=== PATIENT | male | born 1940 | race Hispanic/Latino ===

== ENCOUNTER 2022-12-26 19:30 | Inpatient (IN) | payer MEDICARE ==
[~2022-12-26 19:30] MED LIST: Iopamidol 300 61% 100 ML VIAL FS ONE
[2022-12-26] MEDS ORDERED: Morphine 4 MG/ML VIAL ONE ×2 (20:10→22:28)
[2022-12-26] MEDS ORDERED: Ondansetron PF 4 MG/2 ML Vial ONE (20:10)
[2022-12-26 20:17] LABS: Hematocrit 31.1 % (38.8-50.0); Hemoglobin 9.6 g/dL (13.5-17.5); MDiff Complete? YES; Mean Corpuscular HGB CONC 30.9 g/dL (32.0-36.0); Mean Corpuscular Hemoglobin 22.6 pg (27.0-33.0); Mean Corpuscular Volume 73.2 fl (81.2-95.1); Mean Platelet Volume 9.2 fl (7.4-10.4); Platelet Count 315 10x3/uL (150-450); RBC Distribution Width 15.9 % (11.5-14.5); Red Blood Cell (RBC) Count 4.25 10x6/uL (4.32-5.72); White Blood Cell (WBC) Count 11.3 10x3/uL (3.5-10.5)
[2022-12-26 20:23] LABS: INR-International Normal Ratio 1.4
[2022-12-26 20:27] LABS: ALT (SGPT) 11 U/L (8-55); AST (SGOT) 14 U/L (5-34); Alkaline Phosphatase 77 U/L (40-110); Anion Gap 19 mmol/L (10-20); BUN (Urea Nitrogen) 23 mg/dL (8.4-25.7); Bilirubin, Total 1.9 mg/dL (0.2-1.2); Calc. Creatinine Clearance 0 mL/min (70-130); Calcium 8.9 mg/dL (7.8-10.44); Carbon Dioxide 20 mmol/L (23-31); Chloride 99 mmol/L (98-107); Estimated GFR 59; Glucose 342 mg/dL (83-110); Potassium 4.4 mmol/L (3.5-5.1); Sodium 134 mmol/L (136-145)
[2022-12-26 20:37] LABS: Lipase Less than 4 U/L (8-78)
[2022-12-26 21:23] LABS: Band 19 % (5-11); Lymphocytes 5 % (21-51); Monocytes 3 % (0-10); Neutrophil 73 % (42-75)
[2022-12-26 21:25] LABS: Hypochromia SLIGHT = 6-15 cells (100X) (0-5/hpf); Microcytosis SLIGHT = 6-15 cells (100X) (0-5/hpf); Schistocytes SLIGHT = 2-5 cells (100X) (0-1/hpf); Stomatocytes SLIGHT = 2-5 cells (100X) (0-1/hpf)
[2022-12-26 21:26] LABS: Platelet Adequacy Comment Appears Adequate
[2022-12-26 21:41] LABS: Actual Bicarbonate (HCO3v) 22.7 mEq/L (22-28); Base Excess -2.4 mEq/L (-2 - +2); Calcium, Ionized (venous) 1.11 mmol/L (1.16-1.32); Chloride (VBG) 99 mmol/L (98-106); Hematocrit-VBG 26 % (42.0-52.0); Hemoglobin (Hb) 8.9 g/dL (12.6-17.4); Potassium (VBG) 4.07 mmol/L (3.70-5.30); Puncture Site Other Site; RapidComm Collect By CBN; Sodium 131.9 mmol/L (133-146); pH (venous) 7.369 (7.32-7.43)
[2022-12-26 22:58] LABS: Lactic Acid 1.3 mmol/L (0.5-2.2)
[2022-12-26 23:32] LABS: Bilirubin Neg (Negative); Blood, Urine 25 (Negative); Clarity Clear (Clear); Glucose, Urine (Dipstick) >=1000 mg/dL (Negative); Ketone, Urine 50 mg/dL (Negative); Leukocyte Negative (Negative); Nitrite Negative (Negative); Protein, Urine (Dipstick) 30 mg/dl (Neg-Trace); Urobilinogen Normal mg/dL (Less than 2)
[2022-12-26 23:41] LABS: Bacteria/HPF None Seen HPF (None Seen); CAUTI Indications for Culture Pelvic or flank pain; RBC/HPF 0-3 HPF (0-3); Squamous Epithelial 0-3 HPF (0-3); WBC/HPF None Seen HPF (0-3)
[2022-12-26 23:42] LABS: Urine Culture Reflex No No
[2022-12-27] MEDS ORDERED: Piperacillin/Tazobactam 3.375 GM VIAL ONE (00:39)
[2022-12-27 01:11] LABS: Anion Gap 14 mmol/L (10-20); BUN (Urea Nitrogen) 18 mg/dL (8.4-25.7); Calc. Creatinine Clearance 0 mL/min (70-130); Calcium 8.2 mg/dL (7.8-10.44); Carbon Dioxide 19 mmol/L (23-31); Chloride 106 mmol/L (98-107); Estimated GFR 88; Glucose 228 mg/dL (83-110); Sodium 135 mmol/L (136-145)
[2022-12-27] MEDS ORDERED: Dextrose 5% in Water 1,000 ML IV PRN (01:42)
[2022-12-27] MEDS ORDERED: Ondansetron ODT 4 MG TAB PO PRN (01:42)
[2022-12-27] MEDS ORDERED: Dextrose 50% Abboject 50 ML SYRINGE SLOW IVP PRN (01:42)
[2022-12-27] MEDS ORDERED: Acetaminophen 650 MG Suppository PR PRN (01:42)
[2022-12-27] MEDS ORDERED: Glucagon 1 MG/ML KIT IM PRN (01:42)
[2022-12-27] MEDS ORDERED: Ondansetron PF 4 MG/2 ML Vial IVP PRN (01:42)
[2022-12-27] MEDS ORDERED: Acetaminophen 325 MG TAB PO PRN (01:42)
[2022-12-27 02:11] VITALS: BMI 17.8
[2022-12-27] MEDS: HumaLOG 300 UNITS/3 ML VIAL SC PRN (02:38)
[2022-12-27] MEDS: Sodium Chloride 0.9% 1,000 ML IV SCH ×2 (02:38→12:33)
[2022-12-27 04:30] LABS: Anion Gap 13 mmol/L (10-20); BUN (Urea Nitrogen) 17 mg/dL (8.4-25.7); Calc. Creatinine Clearance 44 mL/min (70-130); Calcium 8.2 mg/dL (7.8-10.44); Carbon Dioxide 20 mmol/L (23-31); Chloride 104 mmol/L (98-107); Estimated GFR 87; Glucose 152 mg/dL (83-110); Potassium 3.8 mmol/L (3.5-5.1); Sodium 133 mmol/L (136-145)
[2022-12-27 04:35] LABS: Hematocrit 27.1 % (38.8-50.0); Hemoglobin 8.2 g/dL (13.5-17.5); MDiff Complete? YES; Mean Corpuscular HGB CONC 30.3 g/dL (32.0-36.0); Mean Corpuscular Hemoglobin 22.7 pg (27.0-33.0); Mean Corpuscular Volume 75.1 fl (81.2-95.1); Mean Platelet Volume 9.2 fl (7.4-10.4); Platelet Count 275 10x3/uL (150-450); RBC Distribution Width 15.7 % (11.5-14.5); Red Blood Cell (RBC) Count 3.61 10x6/uL (4.32-5.72); White Blood Cell (WBC) Count 9.4 10x3/uL (3.5-10.5)
[2022-12-27] MEDS: Morphine 4 MG/ML VIAL SLOW IVP PRN (05:38)
[2022-12-27] MEDS: Piperacillin/Tazobactam 3.375 GM in Sodium Chloride 0.9% 100 ML IVPB SCH ×3 (05:38→21:40)
[2022-12-27 06:37] LABS: Band 19 % (5-11); Lymphocytes 2 % (21-51); Monocytes 3 % (0-10); Neutrophil 75 % (42-75); Reactive Lymphocytes 1 % (0-10)
[2022-12-27 06:39] LABS: Microcytosis SLIGHT = 6-15 cells (100X) (0-5/hpf)
[2022-12-27 06:40] LABS: Hypochromia SLIGHT = 6-15 cells (100X) (0-5/hpf); Ovalocytes SLIGHT = 2-5 cells (100X) (0-1/hpf); Platelet Adequacy Comment Appears Adequate; Schistocytes SLIGHT = 2-5 cells (100X) (0-1/hpf)
[2022-12-27 17:08] LABS: Hematocrit 28.4 % (38.8-50.0); Hemoglobin 8.6 g/dL (13.5-17.5); Platelet Count 268 10x3/uL (150-450)
[2022-12-27 17:29] LABS: Iron 10 ug/dL (65-175); Iron Binding Capacity, Total 314 mcg/dL (261-462)
[2022-12-27 17:47] LABS: Ferritin 138.25 ng/mL (22-322)
[2022-12-27 20:52] LABS: CEA, Serum 10.6 ng/mL (< or = 5.0)
[2022-12-28 04:32] LABS: #Monocytes 0.4 10x3/uL (0.0-1.1); #Neutrophils 8.1 10x3/uL (1.5-8.4); %Basophils 0.2 % (0.0-2.0); %Lymphocytes 4.8 % (18.0-47.0); %Monocytes 4.2 % (0.0-10.0); %Neutrophils 90.6 % (40.0-75.0); Hematocrit 24.9 % (38.8-50.0); Hemoglobin 7.6 g/dL (13.5-17.5); Mean Corpuscular HGB CONC 30.5 g/dL (32.0-36.0); Mean Corpuscular Volume 75.2 fl (81.2-95.1); Mean Platelet Volume 9.5 fl (7.4-10.4); Platelet Count 271 10x3/uL (150-450); Red Blood Cell (RBC) Count 3.31 10x6/uL (4.32-5.72)
[2022-12-28 04:42] LABS: ALT (SGPT) 11 U/L (8-55); AST (SGOT) 17 U/L (5-34); Albumin 2.9 g/dL (3.4-4.8); Alkaline Phosphatase 63 U/L (40-110); Anion Gap 15 mmol/L (10-20); BUN (Urea Nitrogen) 16 mg/dL (8.4-25.7); Bilirubin, Total 0.7 mg/dL (0.2-1.2); Calc. Creatinine Clearance 54 mL/min (70-130); Calcium 8.3 mg/dL (7.8-10.44); Carbon Dioxide 18 mmol/L (23-31); Chloride 108 mmol/L (98-107); Estimated GFR 92; Globulin 2.6 g/dL (2.4-3.5); Glucose 101 mg/dL (83-110); Potassium 3.5 mmol/L (3.5-5.1); Protein, Total 5.5 g/dL (5.8-8.1); Sodium 137 mmol/L (136-145)
[2022-12-28 04:43] LABS: Iron Binding Capacity, Total 270 mcg/dL (261-462)
[2022-12-28 04:54] LABS: Iron Binding Capacity, Total 278 mcg/dL (261-462)
[2022-12-28] MEDS: Piperacillin/Tazobactam 3.375 GM in Sodium Chloride 0.9% 100 ML IVPB SCH ×3 (05:04→21:59)
[2022-12-28] MEDS: Sodium Chloride 0.9% 1,000 ML IV SCH ×3 (05:04→16:17)
[2022-12-28 05:21] LABS: Iron Less than 8 ug/dL (65-175)
[2022-12-28 05:34] LABS: Iron Less than 8 ug/dL (65-175)
[2022-12-28] MEDS: Morphine 4 MG/ML VIAL SLOW IVP PRN (09:42)
[2022-12-28] MEDS ORDERED: PROPOFOL 20 ML ONE (12:50)
[2022-12-28] MEDS ORDERED: fentaNYL 50 mcg/mL 1 mL Vial ONE (12:50)
[2022-12-28] MEDS ORDERED: Ondansetron PF 4 MG/2 ML Vial ONE (12:50)
[2022-12-28] MEDS ORDERED: Glycopyrrolate 0.2 MG/ML 5 ML SYRINGE ONE (12:50)
[2022-12-28] MEDS ORDERED: Dexamethasone 20 MG/5 ML VIAL ONE (12:50)
[2022-12-28] MEDS ORDERED: Lidocaine 1% PF 5 ML VIAL ONE (12:50)
[2022-12-28] MEDS ORDERED: Rocuronium Bromide 10 MG/ML (10ML VIAL) ONE (12:50)
[2022-12-28] MEDS ORDERED: Midazolam HCl 2 mg/2 ml Vial ONE (12:50)
[2022-12-28] MEDS ORDERED: Bupivacaine 0.25% HCL 30 ML VIAL ONE (12:54)
[2022-12-28] MEDS ORDERED: PHENYLEPHRINE-NS 100 MCG/ML 10 ML SYRINGE ONE (13:33)
[2022-12-28] MEDS ORDERED: Bupivacaine HCl 0.5%/Epinephrine 1:200,000/PF 30 ml Vial ONE (13:33)
[2022-12-28] MEDS ORDERED: Piperacillin/Tazobactam 3.375 GM VIAL ONE (14:06)
[2022-12-28 17:10] LABS: Hematocrit 25.9 % (38.8-50.0); Hemoglobin 7.6 g/dL (13.5-17.5); Platelet Count 256 10x3/uL (150-450)
[2022-12-28] MEDS ORDERED: Iron, Sodium Ferric Gluconate 125 MG in Sodium Chloride 0.9% 100 ML IVPB SCH (18:15)
[2022-12-28] MEDS: HumaLOG 300 UNITS/3 ML VIAL SC PRN (23:41)
[2022-12-29] MEDS: Sodium Chloride 0.9% 1,000 ML IV SCH (05:20)
[2022-12-29] MEDS: Piperacillin/Tazobactam 3.375 GM in Sodium Chloride 0.9% 100 ML IVPB SCH ×3 (05:42→22:52)
[2022-12-29 07:16] LABS: #Monocytes 0.1 10x3/uL (0.0-1.1); #Neutrophils 9.9 10x3/uL (1.5-8.4); %Lymphocytes 3.3 % (18.0-47.0); %Monocytes 1.4 % (0.0-10.0); %Neutrophils 94.9 % (40.0-75.0); Hematocrit 26.7 % (38.8-50.0); Mean Corpuscular Hemoglobin 22.8 pg (27.0-33.0); Mean Corpuscular Volume 76.1 fl (81.2-95.1); Mean Platelet Volume 9.6 fl (7.4-10.4); Platelet Count 286 10x3/uL (150-450); RBC Distribution Width 16.1 % (11.5-14.5); Red Blood Cell (RBC) Count 3.51 10x6/uL (4.32-5.72); White Blood Cell (WBC) Count 10.4 10x3/uL (3.5-10.5)
[2022-12-29 07:29] LABS: ALT (SGPT) 11 U/L (8-55); AST (SGOT) 16 U/L (5-34); Albumin 2.9 g/dL (3.4-4.8); Alkaline Phosphatase 61 U/L (40-110); Anion Gap 17 mmol/L (10-20); BUN (Urea Nitrogen) 17 mg/dL (8.4-25.7); Bilirubin, Total 0.5 mg/dL (0.2-1.2); Calc. Creatinine Clearance 50 mL/min (70-130); Calcium 8.5 mg/dL (7.8-10.44); Carbon Dioxide 17 mmol/L (23-31); Chloride 109 mmol/L (98-107); Estimated GFR 90; Globulin 2.8 g/dL (2.4-3.5); Glucose 222 mg/dL (83-110); Potassium 4.5 mmol/L (3.5-5.1); Protein, Total 5.7 g/dL (5.8-8.1); Sodium 138 mmol/L (136-145)
[2022-12-29] MEDS: Ferrous Sulfate 325 MG TAB PO SCH (09:55)
[2022-12-29] MEDS: Polyethylene Glycol 3350 17 GM Packet PO SCH (09:56)
[2022-12-29] MEDS: HumaLOG 300 UNITS/3 ML VIAL SC PRN ×2 (12:15→19:56)
[2022-12-29] MEDS: HYDROcodone/Acetaminophen 5/325 mg Tablet PO PRN (12:25)
[2022-12-29] MEDS ORDERED: Ibuprofen 400 MG TAB PO PRN (13:03)
[2022-12-29] MEDS: Acetaminophen 500 MG TAB PO SCH ×2 (15:37→20:00)
[2022-12-29 17:10] LABS: Hematocrit 25.6 % (38.8-50.0); Hemoglobin 7.9 g/dL (13.5-17.5); Platelet Count 285 10x3/uL (150-450)
[2022-12-29] MEDS ORDERED: Amlodipine 5 MG TAB PO SCH (18:30)
[2022-12-29] MEDS ORDERED: Iron, Sodium Ferric Gluconate 250 MG in Sodium Chloride 0.9% 250 ML 250 ML IVPB SCH (20:00)
[2022-12-30] MEDS: HumaLOG 300 UNITS/3 ML VIAL SC PRN ×2 (02:14→12:46)
[2022-12-30] MEDS: Acetaminophen 500 MG TAB PO SCH ×4 (02:14→21:35)
[2022-12-30 05:58] LABS: %Lymphocytes 3.1 % (18.0-47.0); %Monocytes 4.5 % (0.0-10.0); %Neutrophils 91.8 % (40.0-75.0); Hematocrit 24.9 % (38.8-50.0); Hemoglobin 7.6 g/dL (13.5-17.5); Mean Corpuscular HGB CONC 30.5 g/dL (32.0-36.0); Mean Corpuscular Hemoglobin 22.8 pg (27.0-33.0); Mean Corpuscular Volume 74.6 fl (81.2-95.1); Mean Platelet Volume 9.9 fl (7.4-10.4); Platelet Count 296 10x3/uL (150-450); RBC Distribution Width 15.9 % (11.5-14.5); Red Blood Cell (RBC) Count 3.34 10x6/uL (4.32-5.72); White Blood Cell (WBC) Count 15.8 10x3/uL (3.5-10.5)
[2022-12-30 05:59] LABS: #Monocytes 0.7 10x3/uL (0.0-1.1); #Neutrophils 14.5 10x3/uL (1.5-8.4); %Basophils 0.1 % (0.0-2.0); Carbon Dioxide 22 mmol/L (23-31); Chloride 106 mmol/L (98-107); Potassium 3.4 mmol/L (3.5-5.1); Sodium 136 mmol/L (136-145)
[2022-12-30 06:00] LABS: Albumin 2.6 g/dL (3.4-4.8); Anion Gap 11 mmol/L (10-20); BUN (Urea Nitrogen) 14 mg/dL (8.4-25.7); Bilirubin, Total 0.4 mg/dL (0.2-1.2); Calc. Creatinine Clearance 55 mL/min (70-130); Calcium 8.2 mg/dL (7.6-10.4); Estimated GFR 93; Globulin 2.5 g/dL (2.4-3.5); Glucose 196 mg/dL (83-110); Protein, Total 5.1 g/dL (5.8-8.1)
[2022-12-30 06:01] LABS: ALT (SGPT) 10 U/L (8-55); AST (SGOT) 17 U/L (5-34); Alkaline Phosphatase 60 U/L (40-110)
[2022-12-30] MEDS: Piperacillin/Tazobactam 3.375 GM in Sodium Chloride 0.9% 100 ML IVPB SCH ×3 (06:07→22:27)
[2022-12-30] MEDS ORDERED: Potassium Chloride 20 MEQ TAB PO SCH (09:00)
[2022-12-30] MEDS: Ferrous Sulfate 325 MG TAB PO SCH (09:39)
[2022-12-30] MEDS: Amlodipine 5 MG TAB PO SCH (09:42)
[2022-12-30] MEDS: Polyethylene Glycol 3350 17 GM Packet PO SCH (09:45)
[2022-12-30] MEDS ORDERED: SUGAMMADEX SODIUM 200 MG/2 ML VIAL ONE (20:53)
[2022-12-30] MEDS ORDERED: Famotidine/PF 20 mg/2ml Vial ONE (20:53)
[2022-12-30] MEDS ORDERED: Vasopressin 20 UNITS/ML VIAL ONE (20:54)
[2022-12-30] MEDS ORDERED: Phenylephrine 10 MG/ML VIAL ONE (20:55)
[2022-12-30] MEDS ORDERED: PROPOFOL 20 ML ONE (21:02)
[2022-12-30] MEDS ORDERED: Dexamethasone 4 mg/ml Vial ONE (21:03)
[2022-12-30] MEDS ORDERED: Lidocaine 2% PF 5 ML VIAL ONE (21:03)
[2022-12-30] MEDS ORDERED: Ondansetron PF 4 MG/2 ML Vial ONE (21:03)
[2022-12-30] MEDS ORDERED: PHENYLEPHRINE-NS 100 MCG/ML 10 ML SYRINGE ONE (21:03)
[2022-12-30] MEDS ORDERED: Rocuronium Bromide 10 MG/ML (10ML VIAL) ONE (21:03)
[2022-12-30] MEDS ORDERED: fentaNYL 50 mcg/mL 1 mL Vial ONE (21:03)
[2022-12-30] MEDS ORDERED: Succinylcholine 200 MG/10 ml SYRINGE FS ONE (21:03)
[2022-12-30] MEDS ORDERED: ePHEDrine Sulfate 50 MG/10 ML VIAL ONE (22:16)
[2022-12-31] MEDS: Acetaminophen 500 MG TAB PO SCH ×5 (00:07→23:27)
[2022-12-31] MEDS: HumaLOG 300 UNITS/3 ML VIAL SC PRN ×2 (00:20→12:47)
[2022-12-31] MEDS: Morphine 2 MG/ML VIAL SLOW IVP PRN ×5 (00:21→19:40)
[2022-12-31 03:50] LABS: #Monocytes 0.4 10x3/uL (0.0-1.1); #Neutrophils 13.2 10x3/uL (1.5-8.4); %Basophils 0.3 % (0.0-2.0); %Eosinophils 0.1 % (0.0-6.0); %Lymphocytes 2.3 % (18.0-47.0); %Monocytes 2.8 % (0.0-10.0); %Neutrophils 92.3 % (40.0-75.0); Hematocrit 33.7 % (38.8-50.0); Hemoglobin 10.8 g/dL (13.5-17.5); Mean Corpuscular Hemoglobin 24.3 pg (27.0-33.0); Mean Corpuscular Volume 75.9 fl (81.2-95.1); Mean Platelet Volume 8.8 fl (7.4-10.4); Platelet Count 238 10x3/uL (150-450); RBC Distribution Width 17.2 % (11.5-14.5); Red Blood Cell (RBC) Count 4.44 10x6/uL (4.32-5.72); White Blood Cell (WBC) Count 14.3 10x3/uL (3.5-10.5)
[2022-12-31 04:00] LABS: Anion Gap 15 mmol/L (10-20); BUN (Urea Nitrogen) 10 mg/dL (8.4-25.7); Calc. Creatinine Clearance 59 mL/min (70-130); Carbon Dioxide 19 mmol/L (23-31); Chloride 106 mmol/L (98-107); Potassium 3.5 mmol/L (3.5-5.1); Sodium 136 mmol/L (136-145)
[2022-12-31 04:01] LABS: ALT (SGPT) 16 U/L (8-55); AST (SGOT) 27 U/L (5-34); Albumin 2.8 g/dL (3.4-4.8); Alkaline Phosphatase 74 U/L (40-110); Bilirubin, Total 0.9 mg/dL (0.2-1.2); Calcium 8.1 mg/dL (7.8-10.44); Estimated GFR 95; Globulin 2.7 g/dL (2.4-3.5); Glucose 188 mg/dL (83-110); Protein, Total 5.5 g/dL (5.8-8.1)
[2022-12-31] MEDS: Piperacillin/Tazobactam 3.375 GM in Sodium Chloride 0.9% 100 ML IVPB SCH ×3 (05:27→21:07)
[2022-12-31] MEDS ORDERED: Amlodipine 5 MG TAB PO SCH (05:30)
[2022-12-31] MEDS ORDERED: hydrALAZINE 20 MG/ML VIAL SLOW IVP PRN (06:04)
[2022-12-31] MEDS: Pantoprazole 40 MG VIAL IVP SCH (08:27)
[2022-12-31] MEDS: Amlodipine 5 MG TAB PO SCH (08:27)
[2022-12-31] MEDS: Ferrous Sulfate 325 MG TAB PO SCH (08:27)
[2022-12-31] MEDS: Polyethylene Glycol 3350 17 GM Packet PO SCH ×2 (08:30→08:40)
[2022-12-31] MEDS ORDERED: Iopamidol 300 61% 100 ML VIAL FS ONE (10:24)
[2023-01-01] MEDS: HYDROcodone/Acetaminophen 5/325 mg Tablet PO PRN ×3 (01:17→20:30)
[2023-01-01 04:21] LABS: #Monocytes 0.5 10x3/uL (0.0-1.1); #Neutrophils 9.1 10x3/uL (1.5-8.4); %Basophils 0.2 % (0.0-2.0); %Eosinophils 0.2 % (0.0-6.0); %Lymphocytes 6.6 % (18.0-47.0); %Monocytes 5.1 % (0.0-10.0); %Neutrophils 85.4 % (40.0-75.0); Hematocrit 29.8 % (38.8-50.0); Hemoglobin 9.7 g/dL (13.5-17.5); Mean Corpuscular HGB CONC 32.6 g/dL (32.0-36.0); Mean Corpuscular Volume 73.8 fl (81.2-95.1); Mean Platelet Volume 8.9 fl (7.4-10.4); Platelet Count 227 10x3/uL (150-450); RBC Distribution Width 16.8 % (11.5-14.5); Red Blood Cell (RBC) Count 4.04 10x6/uL (4.32-5.72); White Blood Cell (WBC) Count 10.6 10x3/uL (3.5-10.5)
[2023-01-01 04:34] LABS: ALT (SGPT) 16 U/L (8-55); AST (SGOT) 21 U/L (5-34); Albumin 2.6 g/dL (3.4-4.8); Alkaline Phosphatase 58 U/L (40-110); Anion Gap 16 mmol/L (10-20); BUN (Urea Nitrogen) 8 mg/dL (8.4-25.7); Bilirubin, Total 0.6 mg/dL (0.2-1.2); Calc. Creatinine Clearance 61 mL/min (70-130); Calcium 8.3 mg/dL (7.8-10.44); Carbon Dioxide 21 mmol/L (23-31); Chloride 100 mmol/L (98-107); Estimated GFR 96; Globulin 2.7 g/dL (2.4-3.5); Glucose 162 mg/dL (83-110); Potassium 3.1 mmol/L (3.5-5.1); Protein, Total 5.3 g/dL (5.8-8.1); Sodium 134 mmol/L (136-145)
[2023-01-01] MEDS: Acetaminophen 500 MG TAB PO SCH ×4 (05:25→23:02)
[2023-01-01] MEDS: Piperacillin/Tazobactam 3.375 GM in Sodium Chloride 0.9% 100 ML IVPB SCH ×3 (05:25→22:57)
[2023-01-01] MEDS ORDERED: Potassium Chloride 20 MEQ TAB PO SCH (06:15)
[2023-01-01] MEDS: Amlodipine 5 MG TAB PO SCH (07:44)
[2023-01-01] MEDS: Pantoprazole 40 MG VIAL IVP SCH (07:45)
[2023-01-01] MEDS: Ferrous Sulfate 325 MG TAB PO SCH (07:45)
[2023-01-01] MEDS: HumaLOG 300 UNITS/3 ML VIAL SC PRN ×2 (11:57→17:35)
[2023-01-02] MEDS: HYDROcodone/Acetaminophen 5/325 mg Tablet PO PRN (00:48)
[2023-01-02 03:26] LABS: #Eosinphils 0.3 10x3/uL (0.0-0.5); #Monocytes 0.5 10x3/uL (0.0-1.1); #Neutrophils 5.8 10x3/uL (1.5-8.4); %Basophils 0.4 % (0.0-2.0); %Eosinophils 3.7 % (0.0-6.0); %Lymphocytes 9.4 % (18.0-47.0); %Monocytes 6.6 % (0.0-10.0); %Neutrophils 76.1 % (40.0-75.0); Hematocrit 29.1 % (38.8-50.0); Hemoglobin 9.3 g/dL (13.5-17.5); Mean Corpuscular Hemoglobin 23.8 pg (27.0-33.0); Mean Corpuscular Volume 74.6 fl (81.2-95.1); Mean Platelet Volume 9.5 fl (7.4-10.4); Platelet Count 250 10x3/uL (150-450); RBC Distribution Width 16.9 % (11.5-14.5); White Blood Cell (WBC) Count 7.6 10x3/uL (3.5-10.5)
[2023-01-02 03:40] LABS: ALT (SGPT) 17 U/L (8-55); AST (SGOT) 20 U/L (5-34); Albumin 2.5 g/dL (3.4-4.8); Alkaline Phosphatase 60 U/L (40-110); Anion Gap 12 mmol/L (10-20); BUN (Urea Nitrogen) 6 mg/dL (8.4-25.7); Bilirubin, Total 0.6 mg/dL (0.2-1.2); Calc. Creatinine Clearance 67 mL/min (70-130); Calcium 8.1 mg/dL (7.8-10.44); Carbon Dioxide 25 mmol/L (23-31); Chloride 99 mmol/L (98-107); Estimated GFR 98; Globulin 2.6 g/dL (2.4-3.5); Glucose 169 mg/dL (83-110); Potassium 3.3 mmol/L (3.5-5.1); Protein, Total 5.1 g/dL (5.8-8.1); Sodium 133 mmol/L (136-145)
[2023-01-02] MEDS: Piperacillin/Tazobactam 3.375 GM in Sodium Chloride 0.9% 100 ML IVPB SCH (05:03)
[2023-01-02] MEDS: Acetaminophen 500 MG TAB PO SCH ×3 (05:03→18:04)
[2023-01-02] MEDS: Amlodipine 5 MG TAB PO SCH (07:33)
[2023-01-02] MEDS: Potassium Chloride 20 MEQ TAB PO SCH ×2 (07:33→13:33)
[2023-01-02] MEDS: Pantoprazole 40 MG VIAL IVP SCH (07:34)
[2023-01-02] MEDS: Ferrous Sulfate 325 MG TAB PO SCH (07:34)
[2023-01-02] MEDS: Amoxicillin/Potassium Clav 500 MG TAB PO SCH ×2 (09:17→20:01)
[2023-01-02] MEDS: HumaLOG 300 UNITS/3 ML VIAL SC PRN ×2 (11:46→16:24)
[2023-01-03] MEDS: Acetaminophen 500 MG TAB PO SCH ×4 (00:49→17:32)
[2023-01-03 03:53] LABS: #Eosinphils 0.4 10x3/uL (0.0-0.5); #Monocytes 0.4 10x3/uL (0.0-1.1); #Neutrophils 6.9 10x3/uL (1.5-8.4); %Basophils 0.3 % (0.0-2.0); %Eosinophils 4.8 % (0.0-6.0); %Lymphocytes 9.2 % (18.0-47.0); %Monocytes 4.5 % (0.0-10.0); %Neutrophils 78.5 % (40.0-75.0); Hematocrit 32.7 % (38.8-50.0); Hemoglobin 10.1 g/dL (13.5-17.5); Mean Corpuscular HGB CONC 30.9 g/dL (32.0-36.0); Mean Corpuscular Hemoglobin 23.5 pg (27.0-33.0); Mean Corpuscular Volume 76.2 fl (81.2-95.1); Mean Platelet Volume 9.8 fl (7.4-10.4); Platelet Count 293 10x3/uL (150-450); RBC Distribution Width 17.7 % (11.5-14.5); Red Blood Cell (RBC) Count 4.29 10x6/uL (4.32-5.72); White Blood Cell (WBC) Count 8.8 10x3/uL (3.5-10.5)
[2023-01-03 04:09] LABS: ALT (SGPT) 17 U/L (8-55); AST (SGOT) 21 U/L (5-34); Albumin 2.7 g/dL (3.4-4.8); Alkaline Phosphatase 75 U/L (40-110); Anion Gap 14 mmol/L (10-20); BUN (Urea Nitrogen) 8 mg/dL (8.4-25.7); Bilirubin, Total 0.5 mg/dL (0.2-1.2); Calc. Creatinine Clearance 60 mL/min (70-130); Calcium 8.5 mg/dL (7.8-10.44); Carbon Dioxide 23 mmol/L (23-31); Chloride 101 mmol/L (98-107); Estimated GFR 95; Globulin 2.6 g/dL (2.4-3.5); Glucose 142 mg/dL (83-110); Potassium 4.4 mmol/L (3.5-5.1); Protein, Total 5.3 g/dL (5.8-8.1); Sodium 134 mmol/L (136-145)
[2023-01-03] MEDS: Amlodipine 5 MG TAB PO SCH (08:03)
[2023-01-03] MEDS: Ferrous Sulfate 325 MG TAB PO SCH (08:03)
[2023-01-03] MEDS: Amoxicillin/Potassium Clav 500 MG TAB PO SCH ×2 (08:03→20:53)
[2023-01-03] MEDS: HumaLOG 300 UNITS/3 ML VIAL SC PRN (11:47)
[2023-01-04] MEDS: Acetaminophen 500 MG TAB PO SCH ×3 (00:05→11:14)
[2023-01-04 05:37] LABS: #Eosinphils 0.5 10x3/uL (0.0-0.5); #Monocytes 0.4 10x3/uL (0.0-1.1); #Neutrophils 5.1 10x3/uL (1.5-8.4); %Basophils 0.4 % (0.0-2.0); %Eosinophils 7.1 % (0.0-6.0); %Lymphocytes 10.5 % (18.0-47.0); %Monocytes 5.7 % (0.0-10.0); %Neutrophils 72.9 % (40.0-75.0); Hematocrit 31.5 % (38.8-50.0); Hemoglobin 9.8 g/dL (13.5-17.5); Mean Corpuscular HGB CONC 31.1 g/dL (32.0-36.0); Mean Corpuscular Hemoglobin 23.9 pg (27.0-33.0); Mean Corpuscular Volume 76.8 fl (81.2-95.1); Mean Platelet Volume 9.4 fl (7.4-10.4); Platelet Count 303 10x3/uL (150-450); RBC Distribution Width 18.4 % (11.5-14.5); White Blood Cell (WBC) Count 7.1 10x3/uL (3.5-10.5)
[2023-01-04 05:45] LABS: ALT (SGPT) 17 U/L (8-55); AST (SGOT) 20 U/L (5-34); Albumin 2.8 g/dL (3.4-4.8); Alkaline Phosphatase 79 U/L (40-110); Anion Gap 14 mmol/L (10-20); BUN (Urea Nitrogen) 9 mg/dL (8.4-25.7); Bilirubin, Total 0.5 mg/dL (0.2-1.2); Calc. Creatinine Clearance 59 mL/min (70-130); Calcium 8.5 mg/dL (7.8-10.44); Carbon Dioxide 24 mmol/L (23-31); Chloride 102 mmol/L (98-107); Estimated GFR 94; Globulin 2.8 g/dL (2.4-3.5); Glucose 156 mg/dL (83-110); Potassium 4.1 mmol/L (3.5-5.1); Protein, Total 5.6 g/dL (5.8-8.1); Sodium 136 mmol/L (136-145)
[2023-01-04] MEDS: Amlodipine 5 MG TAB PO SCH (08:34)
[2023-01-04] MEDS: Amoxicillin/Potassium Clav 500 MG TAB PO SCH (08:34)
[2023-01-04] MEDS: Ferrous Sulfate 325 MG TAB PO SCH (08:34)
[2023-01-04 14:08] VITALS: BP 156/70; TEMP 98.7
== END 2023-01-04 17:00 | disposition home or self-care (01) | DRG 329 ==
LOC: CSHERS 19:30 → CSHTELE 12-27 02:04 → CSHIMCU 12-30 22:53 → CSHTELE 01-03 16:37
PROVIDERS: ADMIT Student in an Organized Health Care Education/Training Program; ATTEND Internal Medicine
PROC: 4A043R1 Measurement of Venous Saturation, Peripheral, Percutaneous Approach (ICD-10-PCS; principal; 2022-12-26)
PROC: 3E03329 Introduction of Other Anti-infective into Peripheral Vein, Percutaneous Approach (ICD-10-PCS; 2022-12-27)
PROC: 0DTJ4ZZ Resection of Appendix, Percutaneous Endoscopic Approach (ICD-10-PCS; 2022-12-28)
PROC: 0DTF0ZZ Resection of Right Large Intestine, Open Approach (ICD-10-PCS; 2022-12-30)
PROC: 30233N1 Transfusion of Nonautologous Red Blood Cells into Peripheral Vein, Percutaneous Approach (ICD-10-PCS; 2022-12-30)
PROC: 3E033XZ Introduction of Vasopressor into Peripheral Vein, Percutaneous Approach (ICD-10-PCS; 2022-12-30)
PROC: 3E0M05Z Introduction of Adhesion Barrier into Peritoneal Cavity, Open Approach (ICD-10-PCS; 2022-12-30)
DX: C18.0 Malignant neoplasm of cecum (principal); K35.33 Acute appendicitis with perforation, localized peritonitis, and gangrene, with abscess; E87.1 Hypo-osmolality and hyponatremia; E87.20 Acidosis, unspecified; Z68.1 Body mass index [BMI] 19.9 or less, adult; E86.0 Dehydration; E11.65 Type 2 diabetes mellitus with hyperglycemia; H40.9 Unspecified glaucoma; D50.9 Iron deficiency anemia, unspecified; K82.8 Other specified diseases of gallbladder; R91.8 Other nonspecific abnormal finding of lung field; N40.0 Benign prostatic hyperplasia without lower urinary tract symptoms; Z88.5 Allergy status to narcotic agent; Z79.4 Long term (current) use of insulin; E87.6 Hypokalemia; R63.6 Underweight
CPT/HCPCS: 36415; 36416; 36430; 71260; 74177; 76705; 80048; 80053; 81001; 82378; 82570; 82728; 82805; 83540; 83550; 83605; 83690; 83735; 84484; 85014; 85018; 85025; 85049; 85610; 85730; 86850; 86900; 86901; 88112; 88304; 88305; 88309; 88341; 88342; 93005; 93010; 96361; 96365; 96375; 96376; A4649; C1776; C9113; J0360; J1100; J1815; J2001; J2250; J2270; J2272; J2370; J2405; J2543; J2704; J2916; J3010; J3490; J7050; P9016; Q9967; S0020; S0028

== ENCOUNTER 2023-07-13 07:46 | Outpatient (CLI) | payer MEDICARE ==
[2023-07-13] MEDS ORDERED: Iopamidol 300 61% 100 ML VIAL FS ONE (11:57)
== END 2023-07-13 07:47 | disposition home or self-care (01) ==
LOC: CSHCT 07:46
PROVIDERS: ATTEND Internal Medicine Hematology & Oncology
DX: C18.0 Malignant neoplasm of cecum (principal)
CPT/HCPCS: 71260; 74177; 93306; Q9967